=== PATIENT | female | born 1955 | race Caucasian/White ===

== ENCOUNTER → 2017-04-28 | Outpatient (CLI) | payer OTHER ==
[~2017-04-28] MED LIST: LISI20TA PO; PRD20T PO
--- NOTE | 2017-04-28 10:23 | Diagnostic Imaging Report ---
INDICATION: Routine screening. COMPARISON: 08/09/2004. TECHNIQUE: Screening digital mammography was performed bilaterally with a Computer Aided Detection (CAD) system. FINDINGS: Scattered parenchymal densities are identified bilaterally. Well-defined densities are identified in the upper and outer aspects of both breasts, consistent with intramammary lymph nodes. No new mass or malignant-appearing microcalcifications are seen. The axillae are unremarkable. IMPRESSION: No mammographic features suspicious for malignancy are identified. ACR BI-RADS Category 2: Benign findings. Result letter will be mailed to the patient. Note: At least 10% of breast cancer is not imaged by mammography. Dictated by: Dictated on workstation # [id number]
== END ==
LOC: RAD 08:37
PROVIDERS: ATTEND Family Medicine
DX: Z12.31 Encounter for screening mammogram for malignant neoplasm of breast (principal)
CPT/HCPCS: 77067

== ENCOUNTER → 2018-05-04 | Outpatient (CLI) | payer OTHER ==
--- NOTE | 2018-05-04 11:39 | Diagnostic Imaging Report ---
PATIENT HISTORY: RT KNEE PAIN. TECHNIQUE: Three views of the right knee. COMPARISON: None. FINDINGS: There are minimal tricompartmental degenerative changes in the right knee. Alignment appears normal. No acute fracture is seen. There is a small right knee joint effusion. IMPRESSION: Small right knee joint effusion with no acute osseous abnormality seen. Dictated by: Dictated on workstation # [id number]
== END ==
LOC: RAD 11:08
PROVIDERS: ATTEND Nurse Practitioner Family
DX: M25.461 Effusion, right knee (principal)
CPT/HCPCS: 73562

== ENCOUNTER 2019-01-19 05:31 | Outpatient (CLI) | payer OTHER ==
[~2019-01-19] VITALS: Ht 170.2 cm; Wt 80.5 kg
[2019-01-19] MEDS ORDERED: MV-M1TAB57 PO (11:11)
[2019-01-19] MEDS ORDERED: GLUC1CAP37 PO (11:11)
[2019-01-19] MEDS ORDERED: GBPN600T PO (11:11)
[2019-01-19] MEDS ORDERED: LISI1TAB8 PO (11:11)
[2019-01-19] MEDS ORDERED: VIT1CAPS44 PO (11:11)
[2019-01-19] MEDS ORDERED: METO-395 PO (11:11)
== END 2019-01-19 11:12 | disposition home or self-care (01) ==
LOC: PREOP 05:31
PROVIDERS: ATTEND Surgery
DX: Z01.818 Encounter for other preprocedural examination (principal)

== ENCOUNTER → 2019-11-08 | Outpatient (CLI) | payer OTHER ==
[~2019-11-08] MED LIST changes: +GBPN600T PO; +GLUC1CAP37 PO; +LISI1TAB25 PO; +MTP100TCR PO; +MV-M1TAB57 PO; +VIT1CAPS44 PO
--- NOTE | 2019-11-08 12:26 | Diagnostic Imaging Report ---
INDICATION: Right ankle and foot pain. COMPARISON: None. FINDINGS: 3 views of the right foot demonstrate no acute fracture or dislocation. There are no focal osseous lesions. There is no soft tissue swelling. Joint spaces are well maintained. No radiopaque foreign bodies are seen. IMPRESSION: No acute fractures or dislocations of the right foot. Dictated by: Dictated on workstation # [id number]
--- NOTE | 2019-11-08 12:36 | Diagnostic Imaging Report ---
INDICATION: Knee pain. COMPARISON: None. FINDINGS: 3 views of the left knee joint demonstrate no acute fracture or dislocation. No focal osseous lesions are seen. No significant joint effusion is seen. The surrounding soft tissue structures are unremarkable. There are no radiopaque foreign bodies. IMPRESSION: 1. No acute fractures or dislocations of the left knee joint. Dictated by: Dictated on workstation # [id number]
== END ==
LOC: RAD 11:47
PROVIDERS: ATTEND Family Medicine
DX: M25.571 Pain in right ankle and joints of right foot (principal); M25.562 Pain in left knee
CPT/HCPCS: 73562; 73630

== ENCOUNTER → 2020-05-29 | Outpatient (CLI) | payer OTHER ==
[~2020-05-29] MED LIST changes: -LISI1TAB25 PO; +LISI1TAB46 PO
--- NOTE | 2020-05-29 12:33 | Diagnostic Imaging Report ---
INDICATION: Routine screening. COMPARISON: 04/28/2017. TECHNIQUE: 2D and 3D bilateral screening mammography was performed with CAD. FINDINGS: Scattered fibroglandular densities are identified bilaterally. The benign nodules in the outer portions of both breasts appear stable. No new mass or malignant appearing microcalcifications are seen. The axillae are unremarkable. IMPRESSION: No mammographic features suspicious for malignancy are identified. ACR BI-RADS Category 2: Benign findings. Result letter will be mailed to the patient. Note: At least 10% of breast cancer is not imaged by mammography. Dictated by: Dictated on workstation # [id number]
== END ==
LOC: RAD 08:15
PROVIDERS: ATTEND Nurse Practitioner Family
DX: Z12.31 Encounter for screening mammogram for malignant neoplasm of breast (principal)
CPT/HCPCS: 77063; 77067

== ENCOUNTER → 2021-12-19 | Outpatient (CLI) | payer OTHER ==
--- NOTE | 2021-12-19 12:07 | Diagnostic Imaging Report ---
Indication: Routine screening. Comparison is made with prior mammograms from 05/29/2020 and 04/28/2017. 2-D and 3-D bilateral screening mammography was performed with CAD. Scattered fibroglandular densities are identified bilaterally. Benign nodules in the outer portions of both breasts are stable. No spiculated mass or malignant-appearing microcalcifications are identified. Axillae are unremarkable. IMPRESSION: BI-RADS Category 2 No mammographic features suspicious for malignancy are identified. ACR BI-RADS Category 2: Benign findings. Result letter will be mailed to the patient. Note: At least 10% of breast cancer is not imaged by mammography. Dictated by: Dictated on workstation # [id number]
== END ==
LOC: RAD 10:45
PROVIDERS: ATTEND Family Medicine
DX: Z12.31 Encounter for screening mammogram for malignant neoplasm of breast (principal)
CPT/HCPCS: 77063; 77067

== ENCOUNTER → 2022-07-29 | Outpatient (CLI) | payer OTHER ==
--- NOTE | 2022-07-29 17:48 | Diagnostic Imaging Report ---
INDICATION: Postmenopausal screening COMPARISON: Baseline FINDINGS: AP Spine L1-L4: [BMD (g/cm2): 0.964] [T-Score: -2.0] [Z-Score: -0.6] [BMD Previous: NA] [BMD % Change: NA] LT Hip Neck: [BMD (g/cm2): 0.860] [T-Score: -1.3] [Z-Score: 0.1] LT Hip Total: [BMD (g/cm2):0.890] [T-Score:-0.9] [Z-Score: 0.1] [BMD Previous: NA] [BMD % Change: NA] RT Hip Neck: [BMD (g/cm2):0.798] [T-Score:-1.7] [Z-Score:-0.4] RT Hip Total: [BMD (g/cm2):0.860] [T-score:-1.2] [Z-Score:-0.1] [BMD Previous:NA] [BMD % Change:NA] *Indicates significant change from prior examination based on 95% confidence level. World Health Organization criteria for BMD interpretation classify patients as Normal (T-score at or above -1.0), Osteopenic (T-score between -1.0 and -2.5) or Osteoporotic (T-score at or below -2.5). LIMITATIONS AND MODIFICATION: None. FRACTURE RISK (FRAX SCORE): The ten year probability of (%): Major Osteoporotic Fracture: [18.5] Hip Fracture: [1.4] IMPRESSION: 1. Osteopenia (Low bone mass). 2. Baseline examination. 3. See below National Osteoporosis Foundation guidelines on when to potentially initiate pharmacologic therapy. Based on the National Osteoporosis Foundation Guidelines, pharmacologic treatment should be initiated in any of the following, unless clinical conditions suggest otherwise: * Any patient with prior fragility fracture of the hip or vertebrae. A spine fracture indicates 5X risk for subsequent spine fracture and 2X risk for subsequent hip fracture. * Osteoporosis (T-score <-2.5). * Postmenopausal women and men age 50 and older with low bone mass/osteopenia (T-score between -1.0 and -2.5) by DXA and 10-year major osteoporotic fracture greater than 20% or a 10-year probability of hip fracture greater than 3%. These fracture risks are supplied above in the FRAX score, if applicable. * Clinician judgement and/or patient preferences may indicate treatment for people with 10-year fracture probabilities above or below these levels. Dictated by: Dictated on workstation # [id number]
== END ==
LOC: RAD 13:14
PROVIDERS: ATTEND Family Medicine
DX: M85.80 Other specified disorders of bone density and structure, unspecified site (principal)
CPT/HCPCS: 77080

== ENCOUNTER 2023-01-10 16:33 | Emergency (ER) | payer OTHER ==
[~2023-01-10] VITALS: Ht 167.7 cm; Wt 70.3 kg
[2023-01-10] MEDS ORDERED: AMLO-250 PO (16:57)
--- NOTE | 2023-01-10 16:57 | ED Cardiac General ---
History of Present Illness General Chief Complaint: Cardiac/General Problems Stated Complaint: BP PROBLEMS Nursing Triage Note: PT AMB TO [facility] 7 WITH CC OF HIGH BP SINCE 01/08. 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 PT STATES CONTACTED PCP AND INCREASED BP MEDS. PT REPORTS JOHNS. PT DENIES CP, SOA, BLURRED VISION, WEAKNESS AND NUMBNESS IN EXTREMITIES. PT A&OX4 Source: patient Exam Limitations: no limitations History of Present Illness Date Seen by Provider: Jan 10, 2023 Time Seen by Provider: 16:35 Initial Comments 67yoF with PMH of hypertension coming in due to elevated blood pressure. Her blood pressure she feels like has been elevated since . She does not take it regularly. 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 Called her PCP, increased her dose from lisinopril 20 mg daily to 40 mg daily that day. She also takes metoprolol 100 mg at night. She has had all of these medicines today. Blood pressure has been around 180 again at home, wanted to be evaluated here. Denies severe headache, weakness, numbness, vision changes, chest pain, shortness of breath, or any other concerns. Ambulating without difficulty she states. She says her headache is very mild, and it was very slow in onset. Allergies and Home Medications Allergies Coded Allergies: latex (Verified Allergy, Unknown, 01/19/19) Sulfa (Sulfonamide Antibiotics) (Verified Adverse Reaction, Severe, ANAPHLATIC, 01/26/12) Patient Home Medication List Home Medication List Reviewed: Yes Gabapentin (Gabapentin) 600 Mg Tablet, 600 MG PO DAILY, (Reported) Entered as Reported by: SUKHWINDER SHEPPARD on 01/19/19 1111 Glucosa Herrera 2Kcl/Chondroitin Herrera (Glucosamine & Chondroitin Cap) 1 Each Capsule, 1 EACH PO DAILY, (Reported) Entered as Reported by: SUKHWINDER SHEPPARD on 01/19/19 1111 Lisinopril/Hydrochlorothiazide (Lisinopril-Hctz 20-12.5 mg Tab) 1 Each Tablet, 1 EACH PO DAILY, (Reported) Entered as Reported by: SUKHWINDER SHEPPARD on 01/19/19 1111 Metoprolol Succinate (Metoprolol Succinate) 100 Mg Tab.er.24h, 100 MG PO DAILY, (Reported) Entered as Reported by: SUKHWINDER SHEPPARD on 01/19/19 1111 Mv-Mn/Folic Acid/Calcium/Vit K (Women's 50 Plus Multivit Tab) 1 Each Tablet, 1 EACH PO DAILY, (Reported) Entered as Reported by: SUKHWINDER SHEPPARD on 01/19/19 1111 Vit C/E/Zn/Coppr/Lutein/Zeaxan (Preservision Areds 2 Softgel) 1 Each Capsule, 1 EACH PO DAILY, (Reported) Entered as Reported by: SUKHWINDER SHEPPARD on 01/19/19 1111 Review of Systems Review of Systems Constitutional: No fever EENTM: No Symptoms Reported Respiratory: No Symptoms Reported Cardiovascular: See HPI Gastrointestinal: No Symptoms Reported Genitourinary: No Symptoms Reported Musculoskeletal: no symptoms reported Skin: no symptoms reported Psychiatric/Neurological: See HPI Endocrine: No Symptoms Reported Hematologic/Lymphatic: No Symptoms Reported Past Uhobsiy-Dhiues-Ekkfwq Hx Patient Social History Tobacco Use?: No Substance use?: Yes Substance type: Marijuana Substance frequency: Couple times a week Alcohol Use?: Yes Alcohol Frequency: Once in a while Seasonal Allergies Seasonal Allergies: Yes Past Medical History Surgery/Hospitalization HX: HTN Surgeries: Yes Appendectomy Respiratory: No Cardiac: Yes Hypertension Neurological: Yes Neuropathy Genitourinary: No Gastrointestinal: No Musculoskeletal: Yes Arthritis Endocrine: No HEENT: No Cancer: No Psychosocial: No Integumentary: No Blood Disorders: No Physical Exam Vital Signs Vital Signs - First Documented 01/10/23 16:39 Temp 36.8 Pulse 71 Resp 16 B/P (MAP) 184/94 (124) Pulse Ox 99 O2 Delivery Room Air Capillary Refill : Less Than 3 Seconds Height, Weight, BMI Height: 5'7.00" Weight: 160lbs. oz. [id number]; 24.00 BMI Method:Stated General Appearance: No Apparent Distress, WD/WN HEENT: PERRL/EOMI, Normal ENT Inspection, Pharynx Normal Neck: Full Range of Motion, Normal Inspection, Non Tender, Supple Respiratory: Chest Non Tender, Lungs Clear, Normal Breath Sounds, No Accessory Muscle Use, No Respiratory Distress Cardiovascular: Regular Rate, Rhythm, No Edema, Normal Peripheral Pulses Gastrointestinal: Normal Bowel Sounds, Non Tender, Soft Extremity: Normal Capillary Refill, Normal Inspection, Normal Range of Motion, Non Tender, No Calf Tenderness, No Pedal Edema Neurologic/Psychiatric: Alert, No Motor/Sensory Deficits, Normal Mood/Affect Skin: Normal Color, Warm/Dry Progress/Results/Core Measures Results/Orders Vital Signs/I&O 01/10/23 16:39 Temp 36.8 Pulse 71 Resp 16 B/P (MAP) 184/94 (124) Pulse Ox 99 O2 Delivery Room Air Blood Pressure Mean: 124 Progress Progress Note : Progress Note 67-year-old female presenting for elevated blood pressure. ABCs were intact and vitals were stable on presentation. Physical exam reassuring including a nonfocal neuro exam. Blood pressure trended down upon repeat assessments here after she had been resting from 190s to 170s systolic. I told her the lisinopril might take a couple weeks to start taking full effect since the increase in the dose. She has no red flags in symptoms or on exam today that would be concerning for hypertensive emergency. I will give her a dose of amlodipine here to help bring her back down to closer to normal where she is used to. I will have her follow back up with her PCP in regards to this. Departure Impression Primary Impression: Hypertension Qualified Codes: I10 - Essential (primary) hypertension Disposition: HOME, SELF-CARE Condition: Stable Departure-Patient Inst. Decision time for Depature: 17:00 Referrals: ELAN FINCH DO (PCP/Family) Primary Care Physician Patient Instructions: High Blood Pressure (DC) Add. Discharge Instructions: Your blood pressure did start to trend down in the ER when you are resting. We recommend you take it once a day after you have been sitting for at least 15 minutes. When you are taking her blood pressure, have your feet uncrossed, resting on the floor, arms supported at the level of your heart by a pillow, no talking while the blood pressure is being taken. But this number down in a journal. Come to the ER if you have crushing chest pain, severe shortness of breath, weakness or you cannot move 1 side of your body, numbness or you cannot feel 1 side of your body, or the worst headache of your life. The blood pressure medicine that your doctor increase the dose of may take a couple weeks to take full effect. We will start you on amlodipine that you can take as needed for blood pressure higher than 180/100. Scripts Amlodipine Besylate (Amlodipine Besylate) 5 Mg Tablet 5 MG PO DAILY for 30 Days, #30 TAB Prov: SAMUEL HORNER MD 01/10/23 Work/School Note: Work Release Form Date Seen in the Emergency Department: Jan 10, 2023 Return to Work: Jan 11, 2023 Restrictions: No Restrictions SAMUEL HORNER MD Jan 10, 2023 16:57
[2023-01-10] MEDS ORDERED: amLODIPine 5 MG TABLET PO ONE (17:00)
[2023-01-10 17:02] VITALS: BP 154/83
== END 2023-01-10 17:07 | disposition home or self-care (01) ==
LOC: EDUNIT# 16:33 → ER 16:35
DX: I10 Essential (primary) hypertension (principal); Z79.899 Other long term (current) drug therapy; Z91.040 Latex allergy status
CPT/HCPCS: 99283